=== PATIENT | female | born 1970 | race Caucasian/White ===

== ENCOUNTER 2020-09-23 16:35 | Outpatient (CLI) | payer OTHER, SELFPAY ==
--- NOTE | ~2020-09-23 | US_ITS ---
EXAMINATION: US pelvic complete w TV DATE: 09/23/2020 17:28 INDICATION: Pelvic mass TECHNIQUE: Multiple transabdominal and endovaginal sonographic images of the pelvis were obtained. COMPARISON: None. FINDINGS: The uterus measures 7.5 x 4.5 x 4.6 cm. The endometrial complex measures 3-4 mm in thickness. There is a 2.7 x 2.6 x 3.0 cm isoechoic mass at the cervix. The right ovary measures 1.8 x 0.7 x 0.9 cm. Va scular flow with arterial waveforms identified in the right ovary. The left ovary is not visualized. There is no free fluid in the pelvis. IMPRESSION: 1. 3.0 x 2.7 x 2.6 cm isoechoic mass at the cervix. Differential would include cervical or uterine ca ncer, endometrial polyp, pedunculated submucosal fibroid or sequela of layering fusion abnormality wi th small uterine horn in the setting of either a didelphys or bicornuate uterus. Correlate with resul ts from reported biopsy performed earlier today and if indicated could consider MRI for further evalu ation. Reviewed, dictated and finalized at location A. IMPRESSION: 1. 3.0 x 2.7 x 2.6 cm isoechoic mass at the cervix. Differential would include cervical or uterine cancer, endometrial polyp, pedunculated submucosal fibroid or sequela of layering fusion abnormality with small uterine horn in the settin g of either a didelphys or bicornuate uterus. Correlate with results from repor poncho biopsy performed earlier today and if indicated could consider MRI for furt her evaluation.
== END 2020-09-23 16:36 | disposition home or self-care (01) ==
PROVIDERS: Visit Provider Obstetrics & Gynecology
DX: R19.00 Intra-abdominal and pelvic swelling, mass and lump, unspecified site (principal); N88.9 Noninflammatory disorder of cervix uteri, unspecified
CPT/HCPCS: 76830; 76856

== ENCOUNTER 2020-09-24 08:59 | Day surgery (SDC) | payer OTHER, SELFPAY ==
[2020-09-24 09:26] VITALS: BMI 18.8
[2020-09-24] MEDS: ACETAMINOPHEN 500 MG TABLET 1000 MG PO (13:28)
[2020-09-24] MEDS: LACTATED RINGERS 1,000 ML 30 ML IV CONT (13:34)
[2020-09-24 13:38] VITALS: BP 113/86; PULSE 87; TEMP 36.9; O2SAT 100
--- NOTE | 2020-09-24 13:46 | P.PNAN_ITS ---
Anes - Initial Pre Proc Eval Procedure: Operation Date: 09/24/20 15:00 Proposed Procedures p Hysteroscopy, with Biopsy of Endometrium and / or Polypectomy - Adonis Leon MD Date/Time: 09/24/20 13:46 Surgeon: Adonis Leon MD Pre Op Diagnosis: lesion of endometrium Patient Data Age: 50 Gender: F Height: 1.65 m Weight: 51.2 kg Last Vital Signs Temp 98.4 F 09/24/20 13:38 Pulse 87 09/24/20 13:38 BP 113/86 09/24/20 13:38 Pulse Ox 100 09/24/20 13:38 Allergies Allergy/AdvReac Type Severity Reaction Status Date / Time No Known Allergies Allergy Verified 09/24/20 13:37 Home Medications Medication Instructions Recorded Confirmed Type icdvgneokbqz-zit-bntb-FA-vit K tablet PO 09/24/20 History [Adults Multivitamin] valacyclovir 500 mg PO 09/24/20 History Patient hx anesthesia problems: none Family hx anesthesia problems: none [facility] Past Medical History Medical History (Updated 09/24/20 @ 13:44 by Nathan Hooker MD) Anxiety Social History Social History Smoking status: Never smoker Alcohol intake: current Alcohol use details: Once or twice a month Substance use type: does not use Living arrangements: with family Gender identity (if verbalized by the patient): Female Sexual Orientation (if Verbalized by the Patient): Straight or Heterosexual Spiritual care concerns: No Anes - Eval Final PreProcedure Day of Procedure 09/24/20 13:46 Patient weight: normal Heart: regular rate and rhythm Lungs: clear to auscultation Airway: Mallampati scale class II Neurological: alert and oriented Last oral intake: >/= 8 hours ASA classification: II Emergent: no Anesthetic plan: proceed Anesthesia type and monitoring: general GIVS and standard monitoring Informed Consent: The patient's anesthetic plan and its attendant risks and benefits were discussed with the patient/family/POA. Questions were solicited and answers provided to the satisfaction of the patient/family/POA.
--- NOTE | 2020-09-24 15:18 | WPDHPUPDATE1 ---
History and Physical Update Update Date/Time: 09/24/20 15:18 History and Physical has been reviewed, including an updated exam of the patient. There are NO changes in the patient's condition. Risks, benefits, and alternatives have been discussed and questions answered. Patient agrees to proceed with procedure.
[2020-09-24] MEDS: KETOROLAC 30 MG/ML VIAL (*BKC) IV PUSH (16:00)
[2020-09-24] MEDS: LIDOCAINE HCL 1% LOCAL INJ 20 ML VIAL 50 ML INFILTRATE (16:03)
[2020-09-24 16:29] VITALS: BP 98/54; PULSE 97; RESP 14; O2SAT 99
--- NOTE | 2020-09-24 16:46 | W.PM.PROC2 ---
Procedure Note - Detailed Date of Procedure 09/24/20 Pre-op Diagnosis lesion of endometrium Post-op Diagnosis same (pedunculated submucosal mass) Procedure Performed Hysteroscopy with resection of endometrial mass Surgeon Adonis Leon MD Anesthesia MAC Indications abnormal uterine bleeding Findings pedunculated submucosal mass, normal: cervix , vagina, vulva. Description of Procedure the patient was taken the operating room. She was prepped and draped in the dorsal lithotomy position after induction of mac anesthesia. A speculum was placed in the vagina. The cervix was grasped with a tenaculum.The hysteroscope was inserted up around the wound and he laid mass. The stalk of the pedunculated mass was observed. It was rather broadly based From the hysteroscopic view. Sutures were then placed around the stalk of the fibroid. One was done in a Teresa stitch configuration. Two were placed and just distal to the sutures the stalk was transected with cautery. The cut surface was cauterized very thoroughly. The Teresa stitch suture was used as a retention suture. It was cut and the light the stalk go back to its intrauterine position. Hysteroscope was inserted. The stalk was observed. It was hemostatic. The remainder of the uterus appeared normal. Curettage was not performed due to the recently ligated stalk. the cervix was open and patulous due to the presence of the mass within the distal portion of the cervix/os. Patient tolerated the procedure well. The speculum and tenaculum were removed. She was taken recovery room in stable condition. Sponge lap and needle counts were correct x2. Estimated Blood Loss 20.0 Drains No Packing No Pathology yes Complications No immediate complications Condition stable Disposition PACU
[2020-09-24 16:55] VITALS: BP 106/48; PULSE 85; RESP 14; O2SAT 100
[2020-09-24 17:20] VITALS: BP 102/47; PULSE 69; RESP 14; O2SAT 100
[2020-09-24 17:45] VITALS: BP 102/88
== END 2020-09-24 18:05 | disposition home or self-care (01) ==
PROVIDERS: Visit Provider Obstetrics & Gynecology
PROC: 0U5B8ZZ Destruction of Endometrium, Via Natural or Artificial Opening Endoscopic (ICD-10-PCS; CPT 58563; principal; 2020-09-24 15:00)
DX: D25.0 Submucous leiomyoma of uterus (principal)
CPT/HCPCS: 58561; 88304; 88305; A9270; J1885; J2250; J2405; J2704; J3010; J7030; J7120

== ENCOUNTER 2021-09-05 14:58 | Outpatient (CLI) | payer OTHER, SELFPAY ==
--- NOTE | ~2021-09-05 | XR_ITS ---
XR knee LT 3V DATE: 09/05/2021 15:32 INDICATION: Left knee effusion TECHNIQUE: AP, lateral and sunrise views COMPARISON: None FINDINGS: Mild loss of height and minimal particular spurring at the medial compartment. Slight peria rticular spurring of the patella. No fracture or dislocation or joint effusion. No periosteal reaction or bone destruction. No radiopaq ue intra-articular loose body or chondrocalcinosis. IMPRESSION: Mild osteoarthritis Reviewed, dictated and finalized at location A. IMPRESSION: Mild osteoarthritis
== END 2021-09-05 14:59 | disposition home or self-care (01) ==
PROVIDERS: Visit Provider Nurse Practitioner Obstetrics & Gynecology
DX: M25.462 Effusion, left knee (principal); M17.12 Unilateral primary osteoarthritis, left knee
CPT/HCPCS: 73562

== ENCOUNTER → 2021-09-15 14:44 | Outpatient (CLI) | payer OTHER, SELFPAY ==
--- NOTE | ~2021-09-15 | US_ITS ---
EXAMINATION: US venous doppler [facility] DATE: 09/15/2021 15:08 INDICATION: Left lower limb swelling. TECHNIQUE: Grayscale images without and with compression and Doppler images of the left lower extremi ty veins were obtained. COMPARISON: None FINDINGS: Partial compressibility and echogenic intraluminal material within the distal femoral, popliteal, and gastrocnemius veins. Noncompressible peroneal vein. The left common femoral vein, profunda femoral v ein, proximal and mid femoral vein, posterior tibial veins, and greater saphenous vein are patent. IMPRESSION: 1. Deep venous thrombosis involving the distal left femoral, popliteal, gastrocnemius, and peroneal veins. Results reported telephonically to Dr. Floyd Leon by Dr. Grimaldo at 3:25 PM on 09/15/2021. Reviewed, dictated and finalized at location K. IMPRESSION: 1. Deep venous thrombosis involving the distal left femoral, popliteal, gastro cnemius, and peroneal veins. Results reported telephonically to Dr. Floyd Leon by Dr. Grimaldo at 3:25 PM on .
== END ==
PROVIDERS: PCP Nurse Practitioner Obstetrics & Gynecology; Visit Provider Nurse Practitioner Obstetrics & Gynecology
DX: R60.0 Localized edema (principal); M25.462 Effusion, left knee
CPT/HCPCS: 93971

== ENCOUNTER 2021-12-25 08:19 | Outpatient (CLI) | payer OTHER, SELFPAY ==
--- NOTE | ~2021-12-25 | US_ITS ---
EXAMINATION:US venous doppler LE LT INDICATION:Acute pulmonary embolism. Previous deep venous thrombosis. TECHNIQUE: Multiple grayscale, color flow and Doppler images of the left lower extremity deep venous systems were obtained and reviewed. COMPARISON:Ultrasound dated 09/15/2021 FINDINGS: The common femoral, superficial femoral and popliteal veins demonstrate normal respiratory variation, augmentation and compressibility. Color flow is also seen within the posterior tibial, pe roneal, greater saphenous and profunda veins. IMPRESSION: 1: No lower extremity deep venous thrombosis. Reviewed, dictated and finalized at location B.
== END 2021-12-25 08:20 | disposition home or self-care (01) ==
PROVIDERS: PCP Family Medicine; Visit Provider Family Medicine
DX: I82.409 Acute embolism and thrombosis of unspecified deep veins of unspecified lower extremity (principal)
CPT/HCPCS: 93971

== ENCOUNTER → 2022-04-08 12:40 | Outpatient (CLI) | payer OTHER, SELFPAY ==
--- NOTE | ~2022-04-08 | MM_ITS ---
EXAMINATION: MM screening iftikhar BI w aria HISTORY: Screening mammogram TECHNIQUE: Craniocaudal and mediolateral oblique 3-D tomosynthesis images were obtained and synthetic 2-D images were generated. CAD analysis was submitted and interpreted. COMPARISON: No prior mammogram is available for comparison at this institution. BREAST PARENCHYMAL COMPOSITION: The breasts are extremely dense, which lowers the sensitivity of mamm ography. FINDINGS: There is no evidence of suspicious mass, calcification, or architectural distortion to sugg est malignancy in either breast. IMPRESSION: 1. No mammographic evidence of malignancy. 2. Recommend routine screening mammography in one year. BI-RADS Category 1: Negative Reviewed, dictated and finalized at location A. 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
== END ==
PROVIDERS: PCP Family Medicine; Visit Provider Nurse Practitioner Obstetrics & Gynecology
DX: Z12.31 Encounter for screening mammogram for malignant neoplasm of breast (principal)
CPT/HCPCS: 77063; 77067

== ENCOUNTER 2023-05-21 14:51 | Outpatient (CLI) | payer OTHER, SELFPAY ==
--- NOTE | ~2023-05-21 | XR_ITS ---
XR foot LT min 3V DATE: 05/21/2023 15:13 INDICATION: Left foot pain TECHNIQUE: 4 views COMPARISON: None FINDINGS: No fracture or dislocation, periosteal reaction or bone destruction IMPRESSION: Negative Reviewed, dictated and finalized at location B. IMPRESSION: Negative
--- NOTE | ~2023-05-21 | US_ITS ---
EXAMINATION: US venous doppler [facility] DATE: 05/21/2023 15:55 INDICATION: Personal history of other venous thrombosis TECHNIQUE: Lucio scale images without and with compression and Doppler images of the left lower extrem ity veins were obtained. COMPARISON: 12/25/2021 FINDINGS: The left common femoral vein, profunda femoral vein, femoral vein, popliteal vein, peroneal trunk, posterior tibial veins, and greater saphenous vein are patent. IMPRESSION: 1. Patent left lower extremity veins. No evidence of deep venous thrombosis. Reviewed, dictated and finalized at location F.
== END 2023-05-21 14:52 | disposition home or self-care (01) ==
LOC: ANHIMG 14:55
PROVIDERS: PCP Family Medicine; Visit Provider Family Medicine
DX: R60.0 Localized edema (principal); Z86.718 Personal history of other venous thrombosis and embolism
CPT/HCPCS: 73630; 93971

== ENCOUNTER 2023-06-10 14:07 | Outpatient (CLI) | payer OTHER, SELFPAY ==
--- NOTE | ~2023-06-10 | CT_ITS ---
EXAMINATION: CT IAC/mastoids BI wo con DATE: 06/10/2023 14:31 INDICATION: Cholesteatoma. TECHNIQUE: Computed tomography (CT) of the temporal bones was performed without intravenous contrast. Automated exposure control and iterative reconstruction technique were employed. The dose-length pro duct was 256.81 mGy-cm. COMPARISON: None FINDINGS: RIGHT TEMPORAL BONE: The internal auditory canal, cochlea, vestibule, semicircular canals, vestibular aqueduct, and caroti d canal are normal. There is a high riding jugular bulb. The ossicles, Prussak space, scutum, tympani c membrane, and external auditory canal are normal. There is a small mastoid effusion. LEFT TEMPORAL BONE: The internal auditory canal, cochlea, vestibule, semicircular canals, vestibular aqueduct, carotid ca nal, jugular bulb, facial nerve course, ossicles, Prussak space, scutum, tympanic membrane, and exter nal auditory canal are normal. There is a small mastoid effusion. IMPRESSION: 1. No cholesteatoma identified. Reviewed, dictated and finalized at location A.
== END 2023-06-10 14:08 | disposition home or self-care (01) ==
PROVIDERS: PCP Family Medicine; Visit Provider Nurse Practitioner Family
DX: H71.91 Unspecified cholesteatoma, right ear (principal)
CPT/HCPCS: 70480

== ENCOUNTER 2023-08-13 14:02 | Outpatient (CLI) | payer OTHER, SELFPAY ==
--- NOTE | ~2023-08-13 | MM_ITS ---
EXAMINATION: MM screening iftikhar BI w aria HISTORY: Screening TECHNIQUE: Craniocaudal and mediolateral oblique 3-D tomosynthesis images were obtained and synthetic 2-D images were generated. CAD analysis was submitted and interpreted. COMPARISON: 04/08/2022 BREAST PARENCHYMAL COMPOSITION: Dense: The breasts are extremely dense, which lowers the sensitivity of mammography. FINDINGS: There is no evidence of suspicious mass, calcification, or architectural distortion to sugg est malignancy in either breast. There has been no suspicious interval change. IMPRESSION: 1. No mammographic evidence of malignancy. 2. Recommend routine screening mammography in one year. BI-RADS Category 1: Negative Reviewed, dictated and finalized at location B.
== END 2023-08-13 14:03 ==
LOC: MICIMG 14:03
PROVIDERS: PCP Family Medicine; Visit Provider Nurse Practitioner Obstetrics & Gynecology
DX: Z12.31 Encounter for screening mammogram for malignant neoplasm of breast (principal)
CPT/HCPCS: 77063; 77067

== ENCOUNTER 2024-10-02 00:42 | Day surgery (SDC) | payer OTHER, SELFPAY ==
[2024-09-25 09:02] VITALS: BMI 23.3
--- OUTSIDE RECORDS SUMMARY | 2024-10-02 00:45 | XMS_ITS | Clinical Summary ---
Author Organization [facility] Address [address] [place] [address] Care Team Providers Care Levi Maker Name Role Phone Unavailable Primary Care Provider Unavailabl e Source Comments [facility],non-owned Affiliates and Associated Physician Practices is amultiple site organization consisting of ambulatory clinics and hospital sitesin [place], [place], [place] and [place]. This disclosure is being madepursuant to the Care Everywhere program and may not contain all information available regarding this patient. Last updated 17.[facility] Immunizations Immunization Administration Dates Next Due INFLUENZA VACCINE, QUADR. 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 Gender Identity Not on file Sexual Orientation Not on file Plan of Treatment Health Maintenance Due Date Last Done Comments COLOGUARD (AGES 45-75) - COL ON CA SCREENING 1971 COLON MONITORING 1971 COLONOSCOPY - COLON CA SCREENING 1971 CT COLONOGRAPHY - COLON CA SCREENING 1971 Colorectal Cancer Screening 1971 FIT - COLON CA SCREENING 1971 FLEX SIG - COLON CA SCREENING 1971 LIPID TESTING 1971 HIV SCREENING 06/22/1986 HEPATITIS C SCREENING 06/18/1989 DTAP/TDAP/TD VACCINES (1 - Tdap) 06/22/1990 HEPATITIS B VACCINE (1 of 3 - 19+ 3-dose series) 06/22/1990 MAMMOGRAM 08/04/2020 08/04/2018 PNEUMOCOCCAL VACCINE 50+ (1 of 1 - PCV) 06/22/2021 ZOSTER VACCINE (1 of 2) 06/22/2021 COVID-19 VACCINE (1 - 2023-2 5 season) 2023 DEPRESSION SCREENING 03/01/2024 INFLUENZA VACCINE (#1) 2024 01/02/2020 HIB VACCINE Aged Out No longer eligi ble based on patient's age to complete this topic HPV VACCINE Aged Out No longer eligi ble based on patient's age to complete this topic MENINGOCOCCAL (Group B) VACC INE SHARED DECISION-MAKING Aged Out No longer eligibl e based on patient's age to complete this topic MENINGOCOCCAL GROUPS A/C/Y/W VACCINE Aged Out No longer eligible b ased on patient's age to complete this topic Insurance [facility] [address] [facility] [place], [place] Address: [facility] [address] [place] [address]
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
[2024-10-02 08:23] VITALS: BP 111/65; PULSE 96; RESP 18; TEMP 36.4; O2SAT 99; BMI 22.9
[2024-10-02] MEDS: LACTATED RINGERS 1,000 ML 150 ML IV CONT (08:38)
[2024-10-02 08:41] LABS: BEDSIDEPREGUCG Negative (Negative)
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
[2024-10-02 09:44] VITALS: BP 94/53; PULSE 80; RESP 19; O2SAT 100
[2024-10-02 09:54] VITALS: BP 112/65; PULSE 73; RESP 15; O2SAT 100
[2024-10-02 10:04] VITALS: BP 105/61; PULSE 66; RESP 14; O2SAT 100
== END 2024-10-02 10:09 | disposition home or self-care (01) ==
PROVIDERS: Anesthesiology; PCP Family Medicine; Visit Provider Internal Medicine Gastroenterology
PROC: 0DJD8ZZ Inspection of Lower Intestinal Tract, Via Natural or Artificial Opening Endoscopic (ICD-10-PCS; CPT 45378; principal; 2024-10-02 09:45)
DX: Z12.11 Encounter for screening for malignant neoplasm of colon (principal); F41.9 Anxiety disorder, unspecified; Z98.890 Other specified postprocedural states; Z86.718 Personal history of other venous thrombosis and embolism
CPT/HCPCS: 45378; J2003; J2704; J7120

== ENCOUNTER 2024-11-17 11:36 | Outpatient (CLI) | payer OTHER, SELFPAY ==
--- NOTE | ~2024-11-17 | MM_ITS ---
EXAMINATION: MM screening iftikhar BI w aria HISTORY: Screening TECHNIQUE: Craniocaudal and mediolateral oblique 3-D tomosynthesis images were obtained and synthetic 2-D images were generated. CAD analysis was submitted and interpreted. COMPARISON: Comparison to multiple prior studies sequentially, with oldest reviewed study dated , 04/08/2022 BREAST PARENCHYMAL COMPOSITION: The breasts are extremely dense, which lowers the sensitivity of mammography. FINDINGS: There is no evidence of suspicious mass, calcification, or architectural distortion to suggest malignancy in either breast. IMPRESSION: 1. No mammographic evidence of malignancy. 2. Recommend routine screening mammography in one year. BI-RADS Category 1: Negative Reviewed, dictated and finalized at location B.
--- OUTSIDE RECORDS SUMMARY | 2024-11-17 11:39 | XMS_ITS | Clinical Summary ---
Author Organization [facility] Address [address] [place] [address] Care Team Providers Care Dog Behaviorist Name Role Phone Unavailable Primary Care Provider Unavailabl e Source Comments [facility],non-owned Affiliates and Associated Physician Practices is amultiple site organization consisting of ambulatory clinics and hospital sitesin [place], [place], [place] and [place]. This disclosure is being madepursuant to the Care Everywhere program and may not contain all information available regarding this patient. Last updated 17.[facility] Immunizations Immunization Administration Dates Next Due INFLUENZA VACCINE, QUADR. 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
== END 2024-11-17 11:37 | disposition home or self-care (01) ==
LOC: ANHFOHIMG 11:36
PROVIDERS: PCP Family Medicine; Visit Provider Student in an Organized Health Care Education/Training Program
DX: Z12.31 Encounter for screening mammogram for malignant neoplasm of breast (principal)
CPT/HCPCS: 77063; 77067